=== PATIENT | female | born 1975 | race American Indian/Alaskan Native ===

== ENCOUNTER 2020-10-18 10:12 | Emergency (ER) | payer SELFPAY ==
--- NOTE | 2020-10-18 11:06 | XRay Report ---
Right ankle 3 views INDICATION: Fall FINDINGS: Diffuse swelling within the medial and lateral ankle with joint effusion. Degenerative butt ges seen throughout the midfoot. Talar dome appears intact. Os trigonum is noted. Degenerative change s seen adjacent to the medial malleolus. IMPRESSION: Diffuse swelling within the ankle. Degenerative changes seen throughout the midfoot and medial aspect of the ankle. No displaced fracture is seen. Signer Name: Chuy Robles MD Signed: 10/18/2020 11:01 AM Workstation Name: [id number]
[2020-10-18] MEDS ORDERED: IBUPROFEN 800 MG TAB PO STA (11:30)
--- NOTE | 2020-10-18 11:30 | Emergency Department Report ---
ED General Adult HPI - General Chief complaint: Extremity Injury, Lower Stated complaint: RT FOOT POSSIBLE FX Time Seen by Provider: 10/18/20 11:13 Source: patient Mode of arrival: Wheelchair Limitations: Physical Limitation - History of Present Illness Initial comments: 45-year-old -[place] female patient presents with complaints of right foot and ankle pain after injury last night. She reports her pain is about 8/10 in severity and that ibuprofen is not helping. No numbness/tingling or weakness in her foot or difficulty moving her foot per patient. Pain worsens with ambulation and to touch per patient. She also denies any bruising or skin changes. - Related Data Previous Rx's Medication Instructions Recorded Last Taken Type Clindamycin [Clindamycin CAP] 300 mg PO Q8H #30 cap 11/23/14 Unknown Rx Cyclobenzaprine [Flexeril] 10 mg PO QHS PRN #10 tablet 03/17/18 Unknown Rx Ibuprofen [Motrin] 600 mg PO Q8H PRN #20 tablet 03/17/18 Unknown Rx Acetaminophen/Codeine [Tylenol 1 tab PO Q8H PRN #8 tab 10/18/20 Unknown Rx /Codeine # 3 tab] Naproxen [Naprosyn] 500 mg PO BID PRN #20 tablet 10/18/20 Unknown Rx Allergies Allergy/AdvReac Type Severity Reaction Status Date / Time No Known Allergies Allergy Verified 10/18/20 10:25 ED Review of Systems ROS: Stated complaint: RT FOOT POSSIBLE FX Other details as noted in HPI Musculoskeletal: joint swelling, arthralgia Neurological: abnormal gait. denies: numbness, paresthesias ED Past Medical Hx - Past Medical History Previous Medical History?: No - Surgical History Past Surgical History?: No - Social History Smoking Status: Current Every Day Smoker Substance Use Type: None - Medications Home Medications: Home Medications Medication Instructions Recorded Confirmed Last Taken Type Clindamycin [Clindamycin CAP] 300 mg PO Q8H #30 cap 11/23/14 Unknown Rx Cyclobenzaprine [Flexeril] 10 mg PO QHS PRN #10 tablet 03/17/18 Unknown Rx Ibuprofen [Motrin] 600 mg PO Q8H PRN #20 tablet 03/17/18 Unknown Rx Acetaminophen/Codeine [Tylenol 1 tab PO Q8H PRN #8 tab 10/18/20 Unknown Rx /Codeine # 3 tab] Naproxen [Naprosyn] 500 mg PO BID PRN #20 tablet 10/18/20 Unknown Rx ED Physical Exam - General Limitations: Physical Limitation General appearance: alert, in no apparent distress - Head Head exam: Present: atraumatic, normocephalic - Eye Eye exam: Present: normal appearance - Respiratory Respiratory exam: Absent: respiratory distress - Cardiovascular Cardiovascular Exam: Present: regular rate - Expanded Lower Extremity Exam Right Ankle exam: Present: tenderness (Lateral malleolus), swelling (Lateral). Absent: abrasion, laceration, ecchymosis, deformity Foot/Toe exam: Present: full ROM, tenderness (Diffuse metatarsal tenderness noted without obvious deformity or swelling). Absent: ecchymosis Neuro vascular tendon exam: Absent: pulse deficit, sensory deficit - Neurological Exam Neurological exam: Present: alert, oriented X3 - Psychiatric Psychiatric exam: Present: normal affect, normal mood - Skin Skin exam: Present: warm, dry, intact, normal color. Absent: rash ED Course Vital Signs 10/18/20 10/18/20 10:28 11:35 Temperature 98.1 F Pulse Rate 84 Respiratory 20 16 Rate Blood Pressure 172/88 O2 Sat by Pulse 100 Oximetry ED Medical Decision Making - Radiology Data Radiology results: report reviewed Right ankle 3 views INDICATION: Fall FINDINGS: Diffuse swelling within the medial and lateral ankle with joint effusion. Degenerative changes seen throughout the midfoot. Talar dome appears intact. Os trigonum is noted. Degenerative changes seen adjacent to the medial malleolus. IMPRESSION: Diffuse swelling within the ankle. Degenerative changes seen throughout the midfoot and medial aspect of the ankle. No displaced fracture is seen. Right foot radiograph, 3 views HISTORY: Pain COMPARISON: None FINDINGS: No acute fracture or malalignment. 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 Lisfranc interval is preserved. No focal soft tissue abnormality. IMPRESSION: No acute abnormality the right foot. - Medical Decision Making X-rays negative for any acute bony abnormalities. Will treat for ankle sprain with rice method. Patient provided with crutches and NSAID prescription. She is to follow-up with orthopedics as needed. Blood pressure noted to be elevated, recommend follow-up with her PCP for recheck. Strict return precautions discussed in detail with patient who verbalized understanding. Critical care attestation.: If time is entered above; I have spent that time in minutes in the direct care of this critically ill patient, excluding procedure time. ED Disposition Clinical Impression: Elevated blood pressure reading without diagnosis of hypertension, Right ankle injury Disposition: TO HOME OR SELFCARE Is pt being admited?: No Condition: Stable Instructions: Ankle Sprain, Hypertension, Adult Prescriptions: Naproxen [Naprosyn] 500 mg PO BID PRN #20 tablet PRN Reason: Pain , Severe (7-10) Acetaminophen/Codeine [Tylenol /Codeine # 3 tab] 1 tab PO Q8H PRN #8 tab PRN Reason: Pain Referrals: [facility] [Provider Group] - as needed [facility] [Provider Group] - 2-3 Days (Blood pressure check) Forms: Work/School Release Form(ED)
[2020-10-18 11:31] VITALS: BP 172/88
--- NOTE | 2020-10-18 12:06 | XRay Report ---
Right foot radiograph, 3 views HISTORY: Pain COMPARISON: None FINDINGS: No acute fracture or malalignment. 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 L isfranc interval is preserved. No focal soft tissue abnormality. IMPRESSION: No acute abnormality the right foot. Signer Name: Mariano Spears MD Signed: 10/18/2020 12:02 PM Workstation Name: [id number]
== END 2020-10-18 13:33 | disposition home or self-care (01) ==
LOC: ED 10:12
DX: S99.911A Unspecified injury of right ankle, initial encounter (principal); R03.0 Elevated blood-pressure reading, without diagnosis of hypertension; F17.200 Nicotine dependence, unspecified, uncomplicated; Z79.899 Other long term (current) drug therapy; X58.XXXA Exposure to other specified factors, initial encounter; Y93.89 Activity, other specified; Y92.89 Other specified places as the place of occurrence of the external cause; Y99.8 Other external cause status